=== PATIENT | female | born 1975 | race Native Hawaiian/Other Pacific Islander ===

== ENCOUNTER 2016-12-24 23:00 | Emergency (ER) | payer OTHER ==
[~2016-12-24] VITALS: Ht 160 cm; Wt 77.1 kg
== END 2016-12-24 23:30 | disposition home or self-care (01) ==
LOC: ED 23:00
DX: R06.02 Shortness of breath (principal); R42 Dizziness and giddiness
CPT/HCPCS: 99281

== ENCOUNTER 2017-05-02 11:31 | Outpatient (CLI) | payer OTHER ==
[2017-05-02 12:20] LABS: PLATELET COUNT 300 K/uL (152-353)
[2017-05-02 12:49] LABS: POTASSIUM 4.1 mmol/L (3.6-5.2)
== END 2017-05-02 22:56 | disposition home or self-care (01) ==
LOC: LABW 11:31
PROVIDERS: Physician Assistant
DX: R63.5 Abnormal weight gain (principal); R60.0 Localized edema; E78.00 Pure hypercholesterolemia, unspecified; E55.9 Vitamin D deficiency, unspecified
CPT/HCPCS: 36415; 80053; 80061; 82306; 83036; 84439; 84443; 85027

== ENCOUNTER 2017-05-19 09:54 | Outpatient (CLI) | payer OTHER | END 2017-05-19 19:22 | disposition home or self-care (01) | LOC: MAMMO 09:54 | DX: Z12.31 Encounter for screening mammogram for malignant neoplasm of breast (principal) ==

== ENCOUNTER 2018-02-19 06:50 | Outpatient (CLI) | payer OTHER ==
[2018-02-19 08:23] LABS: PLATELET COUNT 310 K/uL (152-353)
== END 2018-02-19 22:15 | disposition home or self-care (01) ==
LOC: LABW 06:50
PROVIDERS: Physician Assistant
DX: M79.7 Fibromyalgia (principal); E55.9 Vitamin D deficiency, unspecified; D12.4 Benign neoplasm of descending colon
CPT/HCPCS: 36415; 80053; 80061; 82306; 83735; 84439; 84443; 85027; 85651; 86038; 86430

== ENCOUNTER → 2018-04-17 | Outpatient (CLI) | payer OTHER | LOC: LABW 15:48 | DX: R61 Generalized hyperhidrosis (principal) | CPT/HCPCS: 36415; 82670; 83001; 83002; 84146 ==

== ENCOUNTER 2018-06-18 15:01 | Outpatient (CLI) | payer OTHER | END 2018-06-18 22:48 | disposition home or self-care (01) | LOC: LABW 15:01 | DX: N89.8 Other specified noninflammatory disorders of vagina (principal) | CPT/HCPCS: 36415; 86694; 87535; G0432 ==

== ENCOUNTER 2018-07-17 08:59 | Outpatient (CLI) | payer OTHER | END 2018-07-17 22:58 | disposition home or self-care (01) | LOC: MAMMO 08:59 | DX: Z12.31 Encounter for screening mammogram for malignant neoplasm of breast (principal) ==

== ENCOUNTER 2019-03-10 01:42 | Emergency (ER) | payer OTHER ==
[~2019-03-10] VITALS: Ht 160 cm; Wt 64.4 kg
[2019-03-10 02:41] VITALS: BP 103/68; TEMP 97.9
== END 2019-03-10 02:41 | disposition home or self-care (01) ==
LOC: ED 01:42
DX: K08.89 Other specified disorders of teeth and supporting structures (principal); F17.210 Nicotine dependence, cigarettes, uncomplicated
CPT/HCPCS: 99282; 99283